=== PATIENT | male | born 1945 | race Caucasian/White ===

== ENCOUNTER 2017-01-10 11:47 | Emergency (ER) | payer MEDICARE, OTHER ==
[~2017-01-10] VITALS: Ht 188 cm; Wt 86.2 kg
--- NOTE | 2017-01-10 11:50 | NUR ---
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
--- NOTE | 2017-01-10 11:58 | NUR ---
PT TAKEN TO CT SCAN
--- NOTE | 2017-01-10 11:59 | NUR ---
BLOOD SAMPLE SENT TO LAB
[2017-01-10] MEDS ORDERED: IOHEXOL-350 100 ML VIAL IV ONE (12:01)
[2017-01-10] MEDS ORDERED: IV NS 0.9% 250 ML IV ONE (12:01)
[2017-01-10 12:14] LABS: CALCIUM, SERUM 8.8 mg/dL (8.5-10.1); CARBON DIOXIDE 29 mmol/L (21-32); CHLORIDE 102 mmol/L (98-107); GLUCOSE 80 mg/dL (74-106); SODIUM SERUM 136 mmol/L (136-145); UREA NITROGEN, BLOOD 20 mg/dL (7-18)
[2017-01-10 12:17] LABS: BASOPHILS # (AUTO) 0.1 /CMM (0.0-0.2); BASOPHILS % (AUTO) 1.1 % (0.0-2.0); EOSINOPHILS # (AUTO) 0.1 /CMM (0.0-0.7); EOSINOPHILS % (AUTO) 1.3 % (0.0-6.0); HEMATOCRIT 41 % (39-51); HEMOGLOBIN 13.8 g/dL (13.5-17.5); LYMPHOCYTES # (AUTO) 2.9 /CMM (0.8-4.8); LYMPHOCYTES % (AUTO) 48.7 % (20.0-44.0); MEAN CORPUSCULAR HEMOGLOBIN 32 PG (26.0-33.0); MEAN CORPUSCULAR HGB CONC 34 g/dl (31.0-36.0); MEAN CORPUSCULAR VOLUME 95 fL (80-96); MONOCYTES # (AUTO) 0.5 /CMM (0.1-1.30); MONOCYTES % (AUTO) 8.1 % (2.0-12.0); NEUTROPHILS # (AUTO) 2.4 /CMM (1.8-8.9); NEUTROPHILS % (AUTO) 40.8 % (43.0-81.0); PLATELET COUNT (AUTO) 205 /CMM (150-450); RDW COEFFICIENT OF VARIATION 12.3 (11.5-15.0)
[2017-01-10 12:23] LABS: TROPONIN I < 0.017 ng/mL (0.00-0.056)
[2017-01-10 12:24] LABS: INR 0.9 (0.87-1.13); PROTHROMBIN TIME 9.4 SECS (9.5-12.7)
[2017-01-10] MEDS ORDERED: LEVO100T9 PO (13:04)
[2017-01-10] MEDS ORDERED: LOVA40TA2 PO (13:04)
--- NOTE | 2017-01-10 13:07 | NUR ---
320-1 TELE VI FRANCO
--- NOTE | 2017-01-10 13:20 | NUR ---
Patient discharged to home in stable condition. Written and verbal after care instructions given. Patient verbalizes understanding of instruction.
--- NOTE | 2017-01-10 13:20 | NUR ---
IV removed. Catheter intact and site benign. Pressure and 4x4 applied to site. No bleeding noted.
[2017-01-10 13:22] VITALS: BP 128/91
== END 2017-01-10 13:25 | disposition home or self-care (01) ==
LOC: ER 11:49 → UNDOADMIN 13:13 → TELE 13:13
DX: R55 Syncope and collapse (principal); G45.8 Other transient cerebral ischemic attacks and related syndromes; K21.9 Gastro-esophageal reflux disease without esophagitis
CPT/HCPCS: 36415; 70450; 70496; 70498; 71010; 80048; 84484; 85025; 85730; 93005; 99285; A4606; G0480; J7050; Q9967; Z7610